=== PATIENT | male | born 1945 | race Caucasian/White ===

== ENCOUNTER → 2017-01-27 | Outpatient (CLI) | payer MEDICARE ==
[~2017-01-27] MED LIST: /IPRAINH IN; /MOXI40TA OR; ACYC400T OR; ASPI325T OR; CENTRUM SILVER PO; CLON1TAB OR; ISOSORBIDE DINITRATE PO; LIPI80TA OR; METOPROLOL TARTRATE PO; MOTR200T4 PO; NIAC500T OR; NITR0.2D TD; OMEP20TA7 OR; PREDPOW10 PO; TERAZOSIN PO
[2017-01-27 08:12] LABS: BLOOD UREA NITROGEN 24 MG/DL (7-18); CREATININE FOR GFR 1.15 MG/DL (0.70-1.30); GLOMERULAR FILTRATION RATE > 60.0 (>49)
== END ==
LOC: M LAB 07:26
PROVIDERS: ATTEND Surgery Vascular Surgery
DX: Z48.812 Encounter for surgical aftercare following surgery on the circulatory system (principal)

== ENCOUNTER → 2017-02-02 | Outpatient (CLI) | payer MEDICARE ==
[2017-02-02 10:37] LABS: CREATININE FOR GFR 1.36 MG/DL (0.70-1.30); GLOMERULAR FILTRATION RATE 55.3 (>49)
== END ==
LOC: M LAB 09:26
PROVIDERS: ATTEND Surgery Vascular Surgery
DX: Z48.812 Encounter for surgical aftercare following surgery on the circulatory system (principal)

== ENCOUNTER → 2017-02-03 | Outpatient (CLI) | payer MEDICARE ==
[2017-02-03 10:41] LABS: BASO % 0.3 % (0.0-1.0); EOS # 0.1 K/mm3 (0.0-0.50); EOS % 1.4 % (0.0-3.0); LARGE UNSTAINED CELL # 0.1 K/mm3 (0.0-0.4); LARGE UNSTAINED CELL % 1.6 % (0.0-4.0); LYMPH # 1.3 K/mm3 (1.5-4.5); LYMPH % 20.8 % (24.0-44.0); MEAN CORPUSCULAR HEMOGLOBIN 31.3 pg (27.0-33.0); MEAN CORPUSCULAR HGB CONC 32.9 g/dl (32.0-36.5); MEAN CORPUSCULAR VOLUME 95.4 fl (80.0-96.0); MONO # 0.5 K/mm3 (0.0-0.8); MONO % 7.9 % (0.0-5.0); PLATELET COUNT, AUTOMATED 192 k/mm3 (150-450); RED CELL DISTRIBUTION WIDTH 14.9 % (11.5-14.5); WHITE BLOOD COUNT 5.9 K/mm3 (4.0-10.0)
[2017-02-03 10:47] LABS: INR 1.14
[2017-02-03 10:55] LABS: ANION GAP 7 MEQ/L (8-16); BLOOD UREA NITROGEN 18 MG/DL (7-18); CALCIUM LEVEL 9.6 MG/DL (8.8-10.2); CARBON DIOXIDE LEVEL 26 MEQ/L (21-32); CHLORIDE LEVEL 106 MEQ/L (98-107); CREATININE FOR GFR 1.12 MG/DL (0.70-1.30); GLOMERULAR FILTRATION RATE > 60.0 (>49); GLUCOSE, FASTING 123 MG/DL (80-110); POTASSIUM SERUM 4.3 MEQ/L (3.5-5.1); SODIUM LEVEL 139 MEQ/L (136-145)
== END ==
LOC: M LAB 10:12
PROVIDERS: ATTEND Surgery Vascular Surgery
DX: Z01.818 Encounter for other preprocedural examination (principal); D69.8 Other specified hemorrhagic conditions

== ENCOUNTER → 2017-11-02 | Outpatient (CLI) | payer MEDICARE | LOC: M RAD 12:25 | DX: I70.211 Atherosclerosis of native arteries of extremities with intermittent claudication, right leg (principal); I70.202 Unspecified atherosclerosis of native arteries of extremities, left leg; Z95.828 Presence of other vascular implants and grafts | CPT/HCPCS: 93923 ==

== ENCOUNTER → 2017-11-24 | Outpatient (CLI) | payer MEDICARE ==
[~2017-11-24] MED LIST changes: -/IPRAINH IN; -/MOXI40TA OR; -ACYC400T OR; -ASPI325T OR; -CENTRUM SILVER PO; -CLON1TAB OR; +HEPARIN 1,000 UNITS/ML 10ML VIAL (FOR RADIOLOGY& DIALYSIS ONLY) As Ordered; -ISOSORBIDE DINITRATE PO; +ISOVUE-300 61% 50ML VIAL (Q9967) As Ordered; +LIDOCAINE 2% MDV 20 ML VIAL As Ordered; -LIPI80TA OR; -METOPROLOL TARTRATE PO; +MIDAZOLAM INJ 2 MG/2 ML VIAL (J2250) As Ordered; -MOTR200T4 PO; -NIAC500T OR; -NITR0.2D TD; -OMEP20TA7 OR; -PREDPOW10 PO; -TERAZOSIN PO; +fentaNYL 100 MCG/2 ML INJECTION (J3010) As Ordered
== END | disposition home or self-care (01) ==
LOC: M IRPRO 10:28
DX: I70.213 Atherosclerosis of native arteries of extremities with intermittent claudication, bilateral legs (principal); I70.0 Atherosclerosis of aorta; I11.0 Hypertensive heart disease with heart failure; I50.9 Heart failure, unspecified; I25.2 Old myocardial infarction; I25.10 Atherosclerotic heart disease of native coronary artery without angina pectoris; F43.10 Post-traumatic stress disorder, unspecified; E78.00 Pure hypercholesterolemia, unspecified
CPT/HCPCS: 37221

== ENCOUNTER → 2018-01-15 | Outpatient (CLI) | payer MEDICARE | LOC: M RAD 12:30 | DX: I73.9 Peripheral vascular disease, unspecified (principal) | CPT/HCPCS: 93923 ==

== ENCOUNTER 2018-01-25 21:26 | Emergency (ER) | payer MEDICARE ==
[2018-01-25 22:46] LABS: BASO % 0.6 % (0.0-1.0); EOS # 0.2 10^3/uL (0.0-0.50); EOS % 2.7 % (0.0-3.0); HEMOGLOBIN 11.8 g/dl (13.5-17.5); IMMATURE GRANULOCYTE % 0.3 % (0-3.0); LYMPH # 1.6 10^3/uL (1.5-4.5); LYMPH % 22.6 % (24.0-44.0); MEAN CORPUSCULAR HEMOGLOBIN 31.2 pg (27.0-33.0); MEAN CORPUSCULAR HGB CONC 31.9 g/dl (32.0-36.5); MEAN CORPUSCULAR VOLUME 97.9 fl (80.0-96.0); MONO % 14.3 % (0.0-5.0); NEUTROPHILS # 4.2 10^3/uL (1.8-7.7); NEUTROPHILS % 59.5 % (36.0-66.0); PLATELET COUNT, AUTOMATED 207 10^3/uL (150-450); RED BLOOD COUNT 3.78 10^6/uL (4.30-6.10); RED CELL DISTRIBUTION WIDTH 14.7 % (11.5-14.5); WHITE BLOOD COUNT 7.1 10^3/uL (4.0-10.0)
[2018-01-25] MEDS: methylPREDNISolone INJ 125 MG/2 ML VIAL (J2930) IV (23:00)
[2018-01-25 23:08] LABS: LACTIC ACID SEPSIS PROTOCOL 1.5 MMOL/L (0.4-2.0)
[2018-01-25] MEDS: IPRATROPIUM 0.5MG/ALBUTEROL 2.5MG INH SOL UD 3ML (DUONEB)(J7620) NEB (23:09)
[2018-01-25] MEDS ORDERED: ISOVUE-370 76% 100ML VIAL (Q9967) As Ordered (23:10)
[2018-01-25 23:12] LABS: ALBUMIN 4.2 GM/DL (3.2-5.2); ALBUMIN/GLOBULIN RATIO 1.08 (1.00-1.93); ALKALINE PHOSPHATASE 63 U/L (45-117); ALT/SGPT 34 U/L (12-78); ANION GAP 7 MEQ/L (8-16); AST/SGOT 16 U/L (7-37); BILIRUBIN,DIRECT 0.2 MG/DL (0.0-0.2); BILIRUBIN,TOTAL 0.7 MG/DL (0.2-1.0); BLOOD UREA NITROGEN 20 MG/DL (7-18); CARBON DIOXIDE LEVEL 29 MEQ/L (21-32); CHLORIDE LEVEL 105 MEQ/L (98-107); CREATININE FOR GFR 1.26 MG/DL (0.70-1.30); GLOMERULAR FILTRATION RATE > 60.0 (>42); GLUCOSE, FASTING 104 MG/DL (70-100); NT-PRO BNP 1705 PG/ML (<125); POTASSIUM SERUM 4.6 MEQ/L (3.5-5.1); SODIUM LEVEL 141 MEQ/L (136-145); TOTAL PROTEIN 8.1 GM/DL (6.4-8.2)
[2018-01-25] MEDS: FUROSEMIDE 40 MG/4 ML VIAL (J1940) IV (23:57)
== END 2018-01-26 02:12 | disposition home or self-care (01) ==
LOC: M ED 01-26 02:12
DX: R04.2 Hemoptysis (principal); I50.9 Heart failure, unspecified; I25.2 Old myocardial infarction; E11.9 Type 2 diabetes mellitus without complications; I11.0 Hypertensive heart disease with heart failure; E78.5 Hyperlipidemia, unspecified; F41.9 Anxiety disorder, unspecified; Z79.01 Long term (current) use of anticoagulants; Z87.09 Personal history of other diseases of the respiratory system; Z95.1 Presence of aortocoronary bypass graft; Z95.0 Presence of cardiac pacemaker; Z87.891 Personal history of nicotine dependence; Z98.890 Other specified postprocedural states
CPT/HCPCS: Q9967

== ENCOUNTER → 2018-02-19 | Outpatient (CLI) | payer MEDICARE ==
[2018-02-19 14:38] LABS: BASO % 0.3 % (0.0-1.0); EOS # 0.2 10^3/uL (0.0-0.50); EOS % 2.3 % (0.0-3.0); HEMATOCRIT 36.3 % (42.0-52.0); HEMOGLOBIN 11.9 g/dl (13.5-17.5); IMMATURE GRANULOCYTE % 0.4 % (0-3.0); LYMPH # 1.6 10^3/uL (1.5-4.5); LYMPH % 21.6 % (24.0-44.0); MEAN CORPUSCULAR HGB CONC 32.8 g/dl (32.0-36.5); MEAN CORPUSCULAR VOLUME 97.6 fl (80.0-96.0); MONO % 13.5 % (0.0-5.0); NEUTROPHILS # 4.6 10^3/uL (1.8-7.7); NEUTROPHILS % 61.9 % (36.0-66.0); PLATELET COUNT, AUTOMATED 161 10^3/uL (150-450); RED BLOOD COUNT 3.72 10^6/uL (4.30-6.10); RED CELL DISTRIBUTION WIDTH 14.5 % (11.5-14.5); WHITE BLOOD COUNT 7.4 10^3/uL (4.0-10.0)
[2018-02-19 15:07] LABS: ANION GAP 6 MEQ/L (8-16); BLOOD UREA NITROGEN 14 MG/DL (7-18); CALCIUM LEVEL 9.5 MG/DL (8.8-10.2); CARBON DIOXIDE LEVEL 26 MEQ/L (21-32); CHLORIDE LEVEL 108 MEQ/L (98-107); CREATININE FOR GFR 1.23 MG/DL (0.70-1.30); GLOMERULAR FILTRATION RATE > 60.0 (>42); GLUCOSE, FASTING 114 MG/DL (70-100); POTASSIUM SERUM 4.5 MEQ/L (3.5-5.1); SODIUM LEVEL 140 MEQ/L (136-145)
== END ==
LOC: M LAB 14:08
DX: I70.0 Atherosclerosis of aorta (principal); Z79.899 Other long term (current) drug therapy
CPT/HCPCS: 80048

== ENCOUNTER → 2018-02-28 | Outpatient (CLI) | payer MEDICARE ==
[~2018-02-28] MED LIST changes: -LIDOCAINE 2% MDV 20 ML VIAL As Ordered
== END | disposition home or self-care (01) ==
LOC: M IRPRO 06:34
DX: I70.213 Atherosclerosis of native arteries of extremities with intermittent claudication, bilateral legs (principal); I25.10 Atherosclerotic heart disease of native coronary artery without angina pectoris; E78.00 Pure hypercholesterolemia, unspecified; E78.5 Hyperlipidemia, unspecified; I25.2 Old myocardial infarction; I11.0 Hypertensive heart disease with heart failure; I50.9 Heart failure, unspecified; F43.10 Post-traumatic stress disorder, unspecified; I70.0 Atherosclerosis of aorta; M79.605 Pain in left leg
CPT/HCPCS: 36246

== ENCOUNTER → 2018-10-09 | Outpatient (CLI) | payer MEDICARE ==
[~2018-10-09] MED LIST changes: +/IPRAINH IN; +/MOXI40TA OR; +ACET500T15 PO; +ACYC400T OR; +ALL10TAB28 PO; +ASPI325T OR; +CARV12.5 PO; +CENTRUM SILVER PO; +CLON1TAB PO; +ECOT81TA5 PO; -HEPARIN 1,000 UNITS/ML 10ML VIAL (FOR RADIOLOGY& DIALYSIS ONLY) As Ordered; +ISOR1TAB2 PO; +ISOS30TAB PO; +ISOSORBIDE DINITRATE PO; -ISOVUE-300 61% 50ML VIAL (Q9967) As Ordered; +LIPI80TA OR; +METF500T13 PO; +METOPROLOL TARTRATE PO; -MIDAZOLAM INJ 2 MG/2 ML VIAL (J2250) As Ordered; +MOTR200T4 PO; +MULT1CHW39 PO; +NIAC500T OR; +NITR0.2D TD; +NITR0.4S14 SL; +OMEP20TA7 PO; +PLAV1TAB2 PO; +PREDPOW10 PO; +SPIR-10 PO; +TERAZOSIN PO; +VALS1TAB49 PO; +VITMTA PO; -fentaNYL 100 MCG/2 ML INJECTION (J3010) As Ordered
--- NOTE | 2018-10-09 12:08 | REP ---
Clinical: Ventricular fibrillation. Technique: PA and lateral. Comparison: 01/25/2018. Findings: Stable cardiomegaly noted along with prior sternotomy and CABG. Pacemaker in satisfactory stable position. The lung wal[place] are relatively clear and without obvious acute consolidation, effusion, or pneumothorax. Skeletal structures intact. Impression: Cardiomegaly and chronic stable changes. No obvious acute cardiopulmonary process. Electronically Signed by Mitch Chao MD 10/09/2018 11:59 A
[2018-10-09 13:21] LABS: ALBUMIN 4.1 GM/DL (3.2-5.2); BILIRUBIN,DIRECT 0.2 MG/DL (0.0-0.2); BILIRUBIN,TOTAL 0.6 MG/DL (0.2-1.0); MAGNESIUM LEVEL 1.7 MG/DL (1.8-2.4); THYROID STIMULATING HORMONE 0.802 uIU/ML (0.358-3.740); TOTAL PROTEIN 7.8 GM/DL (6.4-8.2)
== END ==
LOC: M LAB 11:27
PROVIDERS: ATTEND Physician Assistant
DX: I51.7 Cardiomegaly (principal); I49.01 Ventricular fibrillation; Z95.0 Presence of cardiac pacemaker

== ENCOUNTER → 2018-11-06 | Outpatient (CLI) | payer MEDICARE ==
--- NOTE | 2018-11-06 14:54 | REP ---
CAROTID ULTRASOUND: Real-time ultrasound evaluation and duplex Doppler interrogation of the extracranial carotid vasculature is performed. There is mild to moderate plaquing and narrowing in both carotid bulbs right greater than left, extending into the internal and external carotid arteries. Luminal narrowing is less than 50%. There is no evidence of hemodynamically significant stenosis of either internal carotid artery. Normal flow velocities are seen. The vertebral arteries demonstrate normal direction of flow. RIGHT LEFT Peak systolic velocity ICA 91.3 cm/s 107 cm/s End diastolic velocity ICA 23.7 cm/s 39.8 cm/s Peak systolic velocity CCA 86.4 cm/s 121 cm/s Peak systolic velocity ECA 101 cm/s 91.1 cm/s ICA/CCA ratio 1.06 0.88 IMPRESSION: Bilateral luminal narrowing of the internal carotid arteries less than 50%. No evidence of hemodynamically significant stenosis. Electronically Signed by Robin Conley MD 11/06/2018 02:45 P
== END ==
LOC: M RAD 13:03
PROVIDERS: ATTEND Physician Assistant
DX: I65.23 Occlusion and stenosis of bilateral carotid arteries (principal)

== ENCOUNTER → 2018-12-21 | Outpatient (CLI) | payer MEDICARE ==
[~2018-12-21] MED LIST changes: -/IPRAINH IN; -/MOXI40TA OR; +ATRO0.063 IN; +AVEL1TAB2 OR; -MULT1CHW39 PO; +MULT200T7 PO
--- NOTE | 2018-12-21 16:30 | REP ---
Bilateral lower extremity arterial Doppler ultrasound: History: Atherosclerosis. Bypass graft. Findings: Ankle brachial indices are low, 0.69 on the right and 0.62 on the left. The distal aorta and common iliac arteries could not be visualized due to body habitus and bowel gas. An external iliac stent is noted on the right. This is patent with a peak systolic flow velocity 98.2 cm/sec and monophasic wave form. There is a left external iliac to common femoral artery bypass graft which appears to be patent although somewhat low velocity. External iliac artery velocity on the left is 156 cm/sec. Bypass graft velocities taper from 124 cm/S proximally to 35 cm/S distally. The proximal superficial femoral artery on the left is occluded. The proximal superficial femoral artery on the right is occluded. Collaterals are seen. Monophasic waveforms are noted bilaterally in the lower extremities. Right lower extremity arterial Doppler velocity chart: CF A 109 cm/S Profunda 142 Proximal SFA occluded Mid SFA occluded Distal SFA 29 Popliteal 28 Proximal AT A 6.2 Tibioperoneal trunk 22.9 Proximal LAB DIRECTOR 20.5 Distal LAB DIRECTOR 24.0 Distal AT A 25.7 Left lower extremity arterial Doppler velocity chart: CF A 31.9 cm/S Profunda 63.7 Proximal SFA 18.3 Mid SFA occluded Distal SFA 24.7 Popliteal 16.7 Proximal AT A 35.8 Tibioperoneal trunk 19.1 Proximal LAB DIRECTOR 18.9 Distal LAB DIRECTOR 16.1 Distal AT A 17.7 Electronically Signed by Desmond Meneses MD 12/21/2018 04:21 P
== END ==
LOC: M RAD 13:03
PROVIDERS: ATTEND Surgery Vascular Surgery
DX: I70.213 Atherosclerosis of native arteries of extremities with intermittent claudication, bilateral legs (principal); Z95.1 Presence of aortocoronary bypass graft

== ENCOUNTER 2019-01-10 09:22 | Day surgery (SDC) | payer MEDICARE ==
[~2019-01-10] VITALS: Ht 172.7 cm; Wt 93.4 kg
[~2019-01-10 09:22] MED LIST changes: +CLON1TAB17 PO; +ENTR1TAB PO; +OMEP40CA2 PO; +PACE200T PO
[2019-01-10] MEDS ORDERED: NS 1,000 ML IV SCH (09:30)
[2019-01-10] MEDS ORDERED: LIDOCAINE 2% INJ 100 MG/5 ML SDV (FOR ANES.) As Ordered ONE (10:04)
[2019-01-10] MEDS ORDERED: PROPOFOL 200 MG/20 ML VIAL As Ordered ONE ×2 (10:04→10:31)
--- NOTE | 2019-01-10 10:16 | ROOR ---
Patient Name: Roshan Archer Procedure Date: 01/10/2019 10:05 AM Date of : 1945 Age: 73 Room: [facility] Gender: Male Note Status: Finalized Procedure: Upper GI endoscopy Indications: Generalized abdominal pain Providers: Luke Chapman Jr, MD Referring MD: [facility] Erin MAO [facility], Admin. Requesting Provider: Medicines: Propofol per Anesthesia Complications: No immediate complications. Procedure: Pre-Anesthesia Assessment: - Prior to the procedure, a History and Physical was performed, and patient medications and allergies were reviewed. The patient is competent. The risks and benefits of the procedure and the sedation options and risks were discussed with the patient. All questions were answered and informed consent was obtained. Patient identification and proposed procedure were verified by the physician and the nurse in the pre-procedure area and in the procedure room. Mental Status Examination: alert and oriented. Airway Examination: normal oropharyngeal airway and neck mobility. Respiratory Examination: clear to auscultation. CV Examination: normal. ASA Grade Assessment: II - A patient with mild systemic disease. After reviewing the risks and benefits, the patient was deemed in satisfactory condition to undergo the procedure. The anesthesia plan was to use moderate sedation / analgesia (conscious sedation). Immediately prior to administration of medications, the patient was re-assessed for adequacy to receive sedatives. The heart rate, respiratory rate, oxygen saturations, blood pressure, adequacy of pulmonary ventilation, and response to care were monitored throughout the procedure. The physical status of the patient was re-assessed after the procedure. The Endoscope was introduced through the mouth, and advanced to the second part of duodenum. The upper GI endoscopy was accomplished without difficulty. The patient tolerated the procedure well. Findings: The upper third of the esophagus, middle third of the esophagus and lower third of the esophagus were normal. Localized mild inflammation characterized by erythema and friability was found on the greater curvature of the stomach and in the prepyloric region of the stomach. Biopsies were taken with a cold forceps for histology. The cardia, gastric fundus, gastric antrum and pylorus were normal. Patchy mild inflammation characterized by congestion (edema), erythema and friability was found in the duodenal bulb. The first portion of the duodenum and second portion of the duodenum were normal. Impression: - Normal upper third of esophagus, middle third of esophagus and lower third of esophagus. - Gastritis. Biopsied. - Normal cardia, gastric fundus, antrum and pylorus. - Duodenitis. - Normal first portion of the duodenum and second portion of the duodenum. Recommendation: - Discharge patient to home (ambulatory). - Return to my office in 2 weeks. Luek Chapman MD Luke Chapman Jr, MD 01/10/2019 10:16:22 AM Electronically signed by Luke Chapman Jr, MD Number of Addenda: 0 Note Initiated On: 01/10/2019 10:05 AM Estimated Blood Loss: Estimated blood loss: none.
--- NOTE | 2019-01-10 10:35 | ROOR ---
Patient Name: Roshan Archer Procedure Date: 01/10/2019 10:06 AM Date of : 1945 Age: 73 Room: [facility] Gender: Male Note Status: Finalized Procedure: Colonoscopy Indications: Constipation Providers: Luke Chapman Jr, MD Referring MD: [facility] Erin MAO [facility], Admin. Requesting Provider: Medicines: Propofol per Anesthesia Complications: No immediate complications. Procedure: Pre-Anesthesia Assessment: - Prior to the procedure, a History and Physical was performed, and patient medications and allergies were reviewed. The patient is competent. The risks and benefits of the procedure and the sedation options and risks were discussed with the patient. All questions were answered and informed consent was obtained. Patient identification and proposed procedure were verified by the physician and the nurse in the pre-procedure area and in the procedure room. Mental Status Examination: alert and oriented. Airway Examination: normal oropharyngeal airway and neck mobility. Respiratory Examination: clear to auscultation. CV Examination: normal. ASA Grade Assessment: II - A patient with mild systemic disease. After reviewing the risks and benefits, the patient was deemed in satisfactory condition to undergo the procedure. The anesthesia plan was to use moderate sedation / analgesia (conscious sedation). Immediately prior to administration of medications, the patient was re-assessed for adequacy to receive sedatives. The heart rate, respiratory rate, oxygen saturations, blood pressure, adequacy of pulmonary ventilation, and response to care were monitored throughout the procedure. The physical status of the patient was re-assessed after the procedure. The Colonoscope was introduced through the anus and advanced to the cecum, identified by appendiceal orifice and ileocecal valve. The colonoscopy was performed without difficulty. The patient tolerated the procedure well. The quality of the bowel preparation was adequate. Findings: The sigmoid colon, descending colon, ascending colon, cecum, appendiceal orifice and ileocecal valve appeared normal. Three polyps were found in the rectum, recto-sigmoid colon and transverse colon. The polyps were small in size. These polyps were removed with a cold snare. Resection and retrieval were complete. To close a defect after polypectomy, one hemostatic clip was successfully placed. There was no bleeding at the end of the procedure. A small polyp was found in the anus. The polyp was removed with a hot snare. The polyp was removed with a cold snare. Resection was complete, and retrieval was complete. Impression: - The sigmoid colon, descending colon, ascending colon, cecum, appendiceal orifice and ileocecal valve are normal. - Three small polyps in the rectum, at the recto-sigmoid colon and in the transverse colon, removed with a cold snare. Resected and retrieved. Clip was placed. - One small polyp at the anus, removed with a hot snare and removed with a cold snare. Resected and retrieved. Recommendation: - Repeat colonoscopy in 5-10 years for surveillance based on pathology results. Luke Chapman MD Luke Chapman Jr, MD 01/10/2019 10:34:50 AM Electronically signed by Luke Chapman Jr, MD Number of Addenda: 0 Note Initiated On: 01/10/2019 10:06 AM Estimated Blood Loss: Estimated blood loss: none.
[2019-01-10 11:00] VITALS: BP 93/53
== END 2019-01-10 11:13 | disposition home or self-care (01) ==
LOC: M OPP 09:22
PROVIDERS: ATTEND Surgery
DX: D12.3 Benign neoplasm of transverse colon (principal); D12.7 Benign neoplasm of rectosigmoid junction; K62.0 Anal polyp; K62.1 Rectal polyp; K29.70 Gastritis, unspecified, without bleeding; K29.80 Duodenitis without bleeding; K59.00 Constipation, unspecified; R10.84 Generalized abdominal pain

== ENCOUNTER 2019-06-28 10:21 | Inpatient (IN) | payer MEDICARE ==
[~2019-06-28] VITALS: Ht 172.7 cm; Wt 91.3 kg
[~2019-06-28 10:21] MED LIST changes: -ALL10TAB28 PO; +ALL10TAB29 PO; -OMEP40CA2 PO; +OMEP40CA97 PO; -VALS1TAB49 PO; +VALS40TA9 PO
[2019-06-28] MEDS ORDERED: ASPIRIN 325 MG TAB PO ONE (10:45)
[2019-06-28] MEDS ORDERED: ASPIRIN 81 MG CHEW TABLET PO ONE (10:45)
[2019-06-28 11:00] LABS: BASO % 0.1 % (0.0-1.0); EOS % 0.4 % (0.0-3.0); HEMATOCRIT 35.1 % (42.0-52.0); HEMOGLOBIN 10.9 g/dl (13.5-17.5); LYMPH # 0.6 10^3/uL (1.5-5.0); MEAN CORPUSCULAR HGB CONC 31.1 g/dl (32.0-36.5); MEAN CORPUSCULAR VOLUME 102.9 fl (80.0-96.0); MONO # 0.7 10^3/uL (0.0-0.8); MONO % 7.9 % (0.0-5.0); NEUTROPHILS # 7.9 10^3/uL (1.5-8.5); NEUTROPHILS % 84.8 % (36.0-66.0); PLATELET COUNT, AUTOMATED 201 10^3/uL (150-450); RED BLOOD COUNT 3.41 10^6/uL (4.30-6.10); WHITE BLOOD COUNT 9.3 10^3/uL (4.0-10.0)
[2019-06-28] MEDS ORDERED: TORS20TA2 PO (11:06)
--- NOTE | 2019-06-28 11:15 | REP ---
Portable chest x-ray: Single view. History: Chest pain. Comparison study: October 09, 2018. Findings: Monitoring electrodes are seen. The patient is status post median sternotomy. A multi lead pacemaker is noted in the right heart via the left side. Marked cardiomegaly is observed. These findings are unchanged. Pulmonary vasculature is cephalized. There is no evidence of pleural effusion or pulmonary edema. No focal infiltrate. Impression: Cardiomegaly with pacemaker. Cephalization. No evidence of pleural effusion or pulmonary edema. Electronically Signed by Desmond Meneses MD 06/28/2019 11:06 A
[2019-06-28 11:31] LABS: ALBUMIN 3.4 GM/DL (3.2-5.2); ALT/SGPT 227 U/L (12-78); BILIRUBIN,DIRECT 0.4 MG/DL (0.0-0.2); BILIRUBIN,TOTAL 0.7 MG/DL (0.2-1.0); BLOOD UREA NITROGEN 40 MG/DL (7-18); CALCIUM LEVEL 9.6 MG/DL (8.8-10.2); CARBON DIOXIDE LEVEL 21 MEQ/L (21-32); CHLORIDE LEVEL 107 MEQ/L (98-107); CPK CREATINE PHOSPHOKINASE 38 U/L (39-308); CREATININE FOR GFR 2.04 MG/DL (0.70-1.30); GLOMERULAR FILTRATION RATE 34.3 (>42); GLUCOSE, FASTING 137 MG/DL (70-100); LIPASE 115 U/L (73-393); MB/CK RELATIVE INDEX 2.63 (< OR =4); POTASSIUM SERUM 4.7 MEQ/L (3.5-5.1); SODIUM LEVEL 136 MEQ/L (136-145); TROPONIN I < 0.02 NG/ML (< 0.10)
[2019-06-28] MEDS ORDERED: NS 1,000 ML IV ONE (12:00)
--- NOTE | 2019-06-28 13:25 | REP ---
Right upper quadrant sonography: History: Right upper quadrant pain with abdominal distension. Findings: Scanning through the right upper quadrant of the abdomen demonstrates a contracted appearing gallbladder containing a 9 mm rounded echogenic immobile structure in its fundus. No definite acoustic shadowing. Polyp versus non-shadowing calculus. The common bile duct is normal measuring 0.3 cm in greatest diameter. Increased echogenicity in the liver is seen consistent with fatty infiltration. No focal liver lesion is seen. The pancreas is obscured by abdominal gas. No right renal abnormality is noted. The right kidney measures 11.5 x 5.9 x 4.9 cm. There is a trace of fluid adjacent to the inferior edge of the liver. Impression: Small contracted appearing gallbladder containing a 9 mm rounded echogenic structure without shadowing. Polyp versus stone. Increased echogenicity in the liver consistent with fatty infiltration. Trace of free fluid. Otherwise negative. Electronically Signed by Desmond Meneses MD 06/28/2019 06:36 P
[2019-06-28 14:36] LABS: CK-MB VALUE MASS < 1.0 NG/ML (<3.6); CPK CREATINE PHOSPHOKINASE 29 U/L (39-308); MB/CK RELATIVE INDEX 3.45 (< OR =4); TROPONIN I < 0.02 NG/ML (< 0.10)
--- NOTE | 2019-06-28 16:01 | REP ---
CT abdomen and pelvis without IV or oral contrast: Renal stone protocol. History: Abdomen pain. Comparison study: July 04, 2012. CT findings: Digital preliminary mentally impaired teacher radiograph demonstrates an unremarkable bowel gas pattern, median sternotomy wires, cardiomegaly, cardiac pacemaker, and bilateral iliac arterial stents. The lung bases are essentially clear. There is a tiny sliver of fluid surrounding the liver in the upper abdomen. No focal hepatic or splenic lesion is seen. The right adrenal gland is normal. There is a low-density nodule in the left adrenal gland measuring 2.2 cm in greatest diameter. This is unchanged from the 2012 study and is consistent with a benign adrenal adenoma. No pancreatic cyst or mass is observed. There are a few punctate calcifications in the pancreas which may reflect chronic pancreatitis. The gallbladder is small and contracted. Extensive vascular calcification is observed. No hydronephrosis is seen. Bilateral iliac stents are in place from the common iliac arteries to the distal external iliac arteries. There are surgical clips and some fibrosis in the left inguinal soft tissues. There is a small amount of pericolic gutter fluid. There is some ascitic fluid in the pelvic reflections. Normal appendix is seen. Urinary bladder, seminal vesicles, and prostate are unremarkable. Impression: Mild amount of ascites. Extensive vascular calcification. Small contracted appearing gallbladder. Otherwise no acute intra-abdominal abnormality. Electronically Signed by Desmond Meneses MD 06/28/2019 06:41 P
[2019-06-28] MEDS ORDERED: CARV6.25 PO (16:02)
[2019-06-28] MEDS ORDERED: CLON1TAB8 PO (16:04)
[2019-06-28] MEDS ORDERED: MOM 30ML SUSPENSION UDC PO PRN (16:30)
[2019-06-28] MEDS ORDERED: ACETAMINOPHEN TAB 650MG DOSE (2X325MG) PO PRN (16:30)
[2019-06-28] MEDS ORDERED: MAALOX 30 ML SUSP *UDC PO PRN (16:30)
[2019-06-28] MEDS ORDERED: NITROGLYCERIN 0.4 MG SUBL TABLET SL PRN (16:45)
--- NOTE | 2019-06-28 16:53 | HPEPDOC ---
General Date of Admission Jun 28, 2019 at 10:22 Date of Service: Jun 28, 2019 Chief Complaint The patient is a 74-year-old male admitted with a reason for visit of Leon (Acute Kidney Injury). Source: Patient History of Present Illness 73 y/o M initially came to ER for c/o abdominal bloating, diffuse abdominal pain for past 1 day and multiple episodes of watery diarrhea preceding abdominal pain for 4 days that has resolved. No specific aggravating or relieving factor. Abdo aliyah pain resolved its own while he was awaiting in ER. In ER pt was found with vitals of BP 139/89, HR 60, RR 18, Temp 96.4, SpO2-98% on RA; blood work up was consistent with LEON. Pt was given 1 liter NS. Hospitalist service was consulted to admit the pt for further management. Pt was seen and examined at bedside. Pt stated that he is feeling fine and did not have any complaint. Pt asked for food. PMH- obesity, chronic systolic CHF, DM type 2, CAD s/p stents, PAD, HLD, HTN, GERD, h/o AR, Anxiety, PTSD, s/p PM and defibrillator placement. PSxH- CABG, right lower extremity bypass for PAD Allergies- statins causes " disorientation" Home meds- reviewed, please refer to permanent medical records. SH- Former smoker, denied alcohol intake, lives alone, independent for activities of daily living. FH- Father CAD, Mother DM type 2. Home Medications Scheduled Amiodarone Hcl (Pacerone) 200 Mg Tablet, 200 MG PO BID, (Reported) Aspirin (Ecotrin) 81 Mg Tab, 81 MG PO DAILY, (Reported) Carvedilol (Carvedilol) 6.25 Mg Tablet, 6.25 MG PO BID, (Reported) Clonazepam (Clonazepam) 1 Mg Tablet, 1 MG PO BID, (Reported) Clopidogrel Bisulfate (Plavix) 75 Mg Tab, 75 MG PO QHS, (Reported) Isosorbide Dinitrate (Isosorbide Dinitrate) 30 Mg Tab, 30 MG PO BID, (Reported) Metformin HCl (Metformin HCl) 500 Mg Tab, 250 MG PO BID, (Reported) Sacubitril/Valsartan (Entresto 24 mg-26 mg Tablet) 1 Each Tablet, 1 TAB PO BID, (Reported) Spironolactone (Spironolactone) 25 Mg Tab, 12.5 MG PO DAILY, (Reported) Scheduled PRN Acetaminophen (Acetaminophen) 500 Mg Tab, 500 MG PO for PAIN, (Reported) Nitroglycerin (Nitroglycerin) 0.4 Mg Sub, 0.4 MG SL Q5MP PRN for CHEST PAIN, (Reported) Torsemide (Torsemide) 20 Mg Tablet, 20 MG PO DAILY PRN for EDEMA, (Reported) Allergies Coded Allergies: Sulfa (Sulfonamide Antibiotics) (Verified Allergy, Intermediate, hives, 01/01/19) buspirone (Verified Adverse Reaction, Intermediate, nausea/vomitting, ) quetiapine (Verified Adverse Reaction, Intermediate, nausea, 01/01/19) Grnihrn-Pka-Onv Reductase Inhibitor (Verified Adverse Reaction, Mild, diarrhea, 01/01/19) A-FIB/CHADSVASC A-FIB History Current/History of A-Fib/PAF?: No Current PO Anticoag Therapy: No Review of Systems Other systems 10 points review of system was performed and it was negative except as per HPI Physical Examination General Exam: Positive: Alert, Cooperative, No Acute Distress Eye Exam: Positive: PERRLA ENT Exam: Positive: Mucous membr. moist/pink Neck Exam: Positive: Supple Chest Exam: Positive: Clear to auscultation, Normal air movement Heart Exam: Positive: Rate Normal, Normal S1, Normal S2 Abdomen Exam: Positive: Normal bowel sounds, Soft Extremity Exam: Positive: Other (NO pitting edema ) Neuro Exam: Positive: Normal Speech, Strength at 5/5 X4 ext Psych Exam: Positive: Mental status NL, Mood NL Vital Signs Vital Signs Date Time Temp Pulse Resp B/P (MAP) Pulse Ox O2 Delivery O2 Flow Rate FiO2 06/28/19 15:00 60 139/89 (106) 98 Room Air 06/28/19 10:22 96.4 18 Laboratory Data Labs 24H Laboratory Tests 2 06/28/19 10:29: Immature Granulocyte % (Auto) 0.8, Neutrophils (%) (Auto) 84.8H, Lymphocytes (%) (Auto) 6.0L, Monocytes (%) (Auto) 7.9H, Eosinophils (%) (Auto) 0.4, Basophils (%) (Auto) 0.1, Neutrophils # (Auto) 7.9, Lymphocytes # (Auto) 0.6L, Monocytes # (Auto) 0.7, Eosinophils # (Auto) 0.0, Basophils # (Auto) 0.0, Nucleated Red Blood Cells % (auto) 0.3H, Anion Gap 8, Glomerular Filtration Rate 34.3L, Calcium Level 9.6, Total Bilirubin 0.7, Direct Bilirubin 0.4H, Aspartate Amino Transf (AST/SGOT) 118H, Alanine Aminotransferase (ALT/SGPT) 227H, Alkaline Phosphatase 91, Total Creatine Kinase 38L, Creatine Kinase MB 1.0, Creatine K inase MB Relative Index 2.63, Troponin I < 0.02, Total Protein 7.0, Albumin 3.4, Albumin/Globulin Ratio 0.94L, Lipase 115 06/28/19 14:27: Total Creatine Kinase 29L, Creatine Kinase MB < 1.0, Creatine Kinase MB Relative Index 3.45, Troponin I < 0.02 CBC/BMP Laboratory Tests 06/28/19 10:29 Assessment/Plan 74 y/o M came c/o mild diffuse abdominal pain and bloating that resolved its own, pt also had recent episode of suspected episode of viral enteritis that also has resolved. Work up was consistent with LEON. Labs and imaging studies reviewed WBC 9.3 H/H 10//35.1 Plats 201 BUN/Cr 40/2.04 was 14/1.23 CT abdomen and US RUQ- no acute pathology Troponin x 2 negative AST/ALT 118/227 Impression- LEON most probably prerenal Plan 1. LEON IV fluid will f/u UA and repeat labs will monitor for volume overload closely in view of h/o systolic CHF 2. chronic systolic CHF stable home meds except diuretics 3. DM type 2 will hold metformin diabetic diet ISS 4. GERD home meds 5. Anxiety Home meds 6. CAD home meds 7. Obesity supportive care 8. Ascites shown on CT and mild transaminitis will f/u repeat labs and o/p GI referral. 9 HLD home meds 10. PAD home meds DVT ppx- SCD, pt is walking around, no chemical ppx indicated Plan / VTE VTE Prophylaxis Ordered?: No YOHANNES JONAS MD Jun 28, 2019 16:53
--- NOTE | 2019-06-28 19:08 | ECGEPIP ---
[facility] - ED Test Date: 2019-06-28 Pat Name: KULWANT MCLAUGHLIN Department: Room: - Gender: Male Ibm Bpm Developer: : 1945 Requested By: Lesley Cox Order Number: [id number] Reading MD: Karen Bedolla Measurements Intervals [place] Rate: 60 P: -81 MS: 140 QRS: 242 QRSD: 191 T: 110 QT: 520 QTc: 520 Interpretive Statements ELECTRONIC ATRIAL PACEMAKER ELECTRONIC VENTRICULAR PACEMAKER ABNORMAL RHYTHM ECG Electronically Signed on 06-28-2019 19:08:46 EST by Karen Bedolla
--- NOTE | 2019-06-28 19:12 | ECGEPIP ---
[facility] - ED Test Date: 2019-06-28 Pat Name: KULWANT MCLAUGHLIN Department: Room: [place] [id number] Gender: Male Press Leader: : 1945 Requested By: Lesley Cox Order Number: [id number] Reading MD: Karen Bedolla Measurements Intervals [place] Rate: 60 P: -84 UT: 146 QRS: 248 QRSD: 184 T: 113 QT: 518 QTc: 518 Interpretive Statements ELECTRONIC ATRIAL PACEMAKER ELECTRONIC VENTRICULAR PACEMAKER ABNORMAL RHYTHM ECG Electronically Signed on 06-28-2019 19:11:49 EST by Karen Bedolla
[2019-06-28 19:45] VITALS: BP 114/62
[2019-06-28] MEDS ORDERED: DEXTROSE 50% 50 ML SYRINGE IV PRN (21:30)
[2019-06-28] MEDS ORDERED: GLUCAGON FOR INJ 1 MG VIAL (J1610) SC PRN (21:30)
[2019-06-28] MEDS ORDERED: GLUCOSE 4 GM CHEW TABLET PO PRN (21:30)
[2019-06-28] MEDS: clonazePAM 1 MG TAB PO SCH (22:18)
[2019-06-28] MEDS: AMIODARONE 200 MG TAB (PACERONE) PO SCH (22:36)
[2019-06-28] MEDS: ISOSORBIDE DIN. (ISORDIL) 30 MG TAB PO SCH (22:37)
[2019-06-28] MEDS: CLOPIDOGREL 75 MG TAB PO SCH (22:37)
[2019-06-28] MEDS: ENTRESTO 24-26MG TABLET (SACUBITRIL/VALSARTAN) PO SCH (22:37)
[2019-06-28] MEDS: CARVedilol 6.25 MG TAB PO SCH (22:37)
[2019-06-28] MEDS: NS 1,000 ML IV SCH (22:38)
[2019-06-29 06:00] VITALS: BP 124/58
[2019-06-29 06:44] LABS: HEMATOCRIT 34.4 % (42.0-52.0); HEMOGLOBIN 10.6 g/dl (13.5-17.5); MEAN CORPUSCULAR HEMOGLOBIN 31.6 pg (27.0-33.0); MEAN CORPUSCULAR HGB CONC 30.8 g/dl (32.0-36.5); MEAN CORPUSCULAR VOLUME 102.7 fl (80.0-96.0); PLATELET COUNT, AUTOMATED 214 10^3/uL (150-450); RED BLOOD COUNT 3.35 10^6/uL (4.30-6.10); WHITE BLOOD COUNT 8.4 10^3/uL (4.0-10.0)
[2019-06-29 07:11] LABS: ALBUMIN 3.3 GM/DL (3.2-5.2); BILIRUBIN,TOTAL 0.7 MG/DL (0.2-1.0); CALCIUM LEVEL 9.3 MG/DL (8.8-10.2); CREATININE FOR GFR 1.75 MG/DL (0.70-1.30); POTASSIUM SERUM 4.8 MEQ/L (3.5-5.1); TOTAL PROTEIN 6.6 GM/DL (6.4-8.2)
[2019-06-29] MEDS: clonazePAM 1 MG TAB PO SCH ×3 (08:32→21:59)
[2019-06-29] MEDS: HumaLOG INSULIN (NovoLOG) PER UNIT SC SCH ×4 (08:33→21:00)
[2019-06-29] MEDS: AMIODARONE 200 MG TAB (PACERONE) PO SCH ×2 (08:34→22:00)
[2019-06-29] MEDS: ASPIRIN 81 MG ENTERIC TAB PO SCH (08:34)
[2019-06-29] MEDS: CARVedilol 6.25 MG TAB PO SCH ×2 (08:35→21:00)
[2019-06-29] MEDS: ISOSORBIDE DIN. (ISORDIL) 30 MG TAB PO SCH ×2 (08:35→22:00)
[2019-06-29] MEDS: ENTRESTO 24-26MG TABLET (SACUBITRIL/VALSARTAN) PO SCH ×2 (08:35→22:00)
[2019-06-29] MEDS: NS 1,000 ML IV SCH ×3 (09:20→22:19)
[2019-06-29 14:00] VITALS: BP 118/56
--- NOTE | 2019-06-29 16:22 | IPNPDOC ---
Subjective Date Seen The patient was seen on 06/29/19. Subjective Chief Complaint/HPI abnormal renal function Events since last encounter Pt was seen and examined at bedside. Pt was resting comfortably in bed. Pt denied abdominal pain. Renal function has not improved as anticipated with ivf. will change admission status to inpatient Objective Physical Examination General Exam: Positive: Alert, Cooperative, No Acute Distress Eye Exam: Positive: PERRLA ENT Exam: Positive: Mucous membr. moist/pink Neck Exam: Positive: Supple Chest Exam: Positive: Clear to auscultation, Normal air movement Heart Exam: Positive: Rate Normal, Normal S1, Normal S2 Abdomen Exam: Positive: Normal bowel sounds, Soft Extremity Exam: Positive: Other (NO pitting edema ) Neuro Exam: Positive: Normal Speech, Strength at 5/5 X4 ext Psych Exam: Positive: Mental status NL, Mood NL Assessment /Plan Assessment 74 y/o M came c/o mild diffuse abdominal pain and bloating that resolved its own, pt also had recent episode of suspected viral enteritis that also has resolved. Work up was consistent with SANDY. Labs and imaging studies reviewed WBC 9.3 H/H 10//35.1 Plats 201 BUN/Cr 40/2.04 was 14/1.23 CT abdomen and US RUQ- no acute pathology Troponin x 2 negative AST/ALT 118/227 Impression- SANDY most probably prerenal Plan 1. SANDY improving IV fluid will f/u UA and repeat labs will monitor for volume overload closely in view of h/o systolic CHF 2. chronic systolic CHF stable home meds except diuretics 3. DM type 2 will hold metformin diabetic diet ISS 4. GERD home meds 5. Anxiety Home meds 6. CAD home meds 7. Obesity supportive care 8. Ascites shown on CT and mild transaminitis will f/u repeat labs and o/p GI referral. 9 HLD home meds 10. PAD home meds Plan/VTE VTE Prophylaxis Ordered?: Yes VS, I&O, 24H, Fishbone Vital Signs/I&O Vital Signs Date Time Temp Pulse Resp B/P (MAP) Pulse Ox O2 Delivery O2 Flow Rate FiO2 06/29/19 14:00 97.2 61 18 118/56 (76) 95 Room Air I&O- Last 24 Hours up to 6 AM 06/29/19 06:00 Intake Total 2275 ml Output Total 425 ml Balance 1850 ml Laboratory Data 24H LABS Laboratory Tests 2 06/28/19 22:49: Bedside Glucose (Misc Panel) 142H 06/29/19 03:53: Urine Color YELLOW, Urine Appearance CLEAR, Urine pH 5.0, Urine Specific [place] 1.020, Urine Protein NEGATIVE, Urine Glucose (UA) NEGATIVE, Urine Ketones NEGATIVE, Urine Blood NEGATIVE, Urine Nitrite NEGATIVE, Urine Bilirubin NEGATIVE, Urine Urobilinogen 2.0H, Urine Leukocyte Esterase NEGATIVE, Urine WBC (Auto) 0, Urine RBC (Auto) 1, Urine Hyaline Casts (Auto) 0, Urine Bacteria (Auto) NEGATIVE, Urine Squamous Epithelial Cells 0, Urine Sperm (Auto) , Urine Random Creatinine 124.0, Urine Random Sodium 70 06/29/19 06:25: Nucleated Red Blood Cells % (auto) 0.5H, Anion Gap 7L, Glomerular Filtration Rate 41.0L, Calcium Level 9.3, Total Bilirubin 0.7, Aspartate Amino Transf (AST/SGOT) 116H, Alanine Aminotransferase (ALT/SGPT) 247H, Alkaline Phosphatase 100, Total Protein 6.6, Albumin 3.3, Albumin/Globulin Ratio 1.00 06/29/19 12:06: Bedside Glucose (Misc Panel) 152H CBC/BMP Laboratory Tests 06/29/19 06:25 YOHANNES JONAS MD Jun 29, 2019 16:22
[2019-06-29 20:00] VITALS: BP 104/57
[2019-06-29] MEDS: CLOPIDOGREL 75 MG TAB PO SCH (21:00)
[2019-06-30] MEDS: IPRATROPIUM 0.5MG/ALBUTEROL 2.5MG INH SOL UD 3ML (DUONEB)(J7620) NEB SCH ×7 (04:00→23:37)
[2019-06-30 06:00] VITALS: BP 108/62
[2019-06-30 07:19] LABS: HEMOGLOBIN 10.7 g/dl (13.5-17.5); MEAN CORPUSCULAR HEMOGLOBIN 30.9 pg (27.0-33.0); MEAN CORPUSCULAR HGB CONC 30.6 g/dl (32.0-36.5); MEAN CORPUSCULAR VOLUME 101.2 fl (80.0-96.0); PLATELET COUNT, AUTOMATED 203 10^3/uL (150-450); RED BLOOD COUNT 3.46 10^6/uL (4.30-6.10); WHITE BLOOD COUNT 9.5 10^3/uL (4.0-10.0)
[2019-06-30] MEDS: HumaLOG INSULIN (NovoLOG) PER UNIT SC SCH ×4 (07:30→20:53)
[2019-06-30 07:40] LABS: CREATININE FOR GFR 1.67 MG/DL (0.70-1.30); GLOMERULAR FILTRATION RATE 43.3 (>42)
[2019-06-30] MEDS ORDERED: CALCIUM CARBONATE 500 MG CHEW U/D PO PRN (08:00)
[2019-06-30] MEDS: NS 1,000 ML IV SCH ×2 (08:30→18:30)
[2019-06-30] MEDS: clonazePAM 1 MG TAB PO SCH ×2 (09:00→20:52)
[2019-06-30] MEDS ORDERED: ONDANSETRON 4MG/2ML VIAL (J2405) IV PRN (09:45)
[2019-06-30] MEDS: ASPIRIN 81 MG ENTERIC TAB PO SCH (10:54)
[2019-06-30] MEDS: AMIODARONE 200 MG TAB (PACERONE) PO SCH ×2 (10:54→20:51)
[2019-06-30] MEDS: CARVedilol 6.25 MG TAB PO SCH ×2 (10:56→20:51)
[2019-06-30] MEDS ORDERED: GAVISCON PO PRN (12:00)
[2019-06-30] MEDS: ISOSORBIDE DIN. (ISORDIL) 30 MG TAB PO SCH ×2 (12:01→20:52)
[2019-06-30] MEDS: ENTRESTO 24-26MG TABLET (SACUBITRIL/VALSARTAN) PO SCH ×2 (12:01→20:52)
[2019-06-30 14:00] VITALS: BP 129/69
--- NOTE | 2019-06-30 16:32 | IPNPDOC ---
Subjective Date Seen The patient was seen on 06/30/19. Subjective Chief Complaint/HPI abdominal discomfort Events since last encounter Pt c/o mild non specific abdominal discomfort Objective Physical Examination General Exam: Positive: Alert, Cooperative, No Acute Distress Eye Exam: Positive: PERRLA ENT Exam: Positive: Mucous membr. moist/pink Neck Exam: Positive: Supple Chest Exam: Positive: Clear to auscultation, Normal air movement Heart Exam: Positive: Rate Normal, Normal S1, Normal S2 Abdomen Exam: Positive: Normal bowel sounds, Soft Extremity Exam: Positive: Other (NO pitting edema ) Skin Exam: Positive: Nl turgor and temperature Neuro Exam: Positive: Normal Speech, Strength at 5/5 X4 ext Psych Exam: Positive: Mental status NL, Mood NL Assessment /Plan Assessment 74 y/o M came c/o mild diffuse abdominal pain and bloating that resolved its own, pt also had recent episode of suspected viral enteritis that also has resolved. Work up was consistent with SANDY. Labs and imaging studies reviewed Impression- SANDY most probably prerenal Plan 1. SANDY improving IV fluid will f/u repeat labs will continue monitor for volume overload closely in view of h/o systolic CHF 2. chronic systolic CHF stable home meds except diuretics 3. DM type 2 will hold metformin diabetic diet ISS 4. GERD home meds 5. Anxiety Home meds 6. CAD home meds 7. Obesity supportive care 8. Ascites shown on CT and mild transaminitis will f/u repeat labs and o/p GI referral. 9 HLD home meds 10. PAD home meds 11. Non specific abdominal discomfort CT- no acute finding. will continue to monitor Home medication Gavison prn Plan/VTE VTE Prophylaxis Ordered?: Yes VS, I&O, 24H, Marysol Vital Signs/I&O Vital Signs Date Time Temp Pulse Resp B/P (MAP) Pulse Ox O2 Delivery O2 Flow Rate FiO2 06/30/19 14:00 98.8 66 18 129/69 (89) 94 Room Air I&O- Last 24 Hours up to 6 AM 06/30/19 06:00 Intake Total 3970 ml Output Total 450 ml Balance 3520 ml Laboratory Data 24H LABS Laboratory Tests 2 06/29/19 16:51: Bedside Glucose (Misc Panel) 141H 06/29/19 20:35: Bedside Glucose (Misc Panel) 139H 06/30/19 06:56: Nucleated Red Blood Cells % (auto) 0.3H, Anion Gap 7L, Glomerular Filtration Rate 43.3, Calcium Level 9.0 06/30/19 12:00: Bedside Glucose (Misc Panel) 130H CBC/BMP Laboratory Tests 06/30/19 06:56 YOHANNES JONAS MD Jun 30, 2019 16:32
[2019-06-30 20:00] VITALS: BP 115/59
[2019-06-30 20:52] VITALS: BP 115/59
[2019-06-30] MEDS: CLOPIDOGREL 75 MG TAB PO SCH (20:52)
[2019-06-30] MEDS ORDERED: HEPARIN SOD (PORCINE) 5000 UNITS/ML VIAL SQ SCH (21:00)
[2019-07-01] MEDS: IPRATROPIUM 0.5MG/ALBUTEROL 2.5MG INH SOL UD 3ML (DUONEB)(J7620) NEB SCH (04:00)
[2019-07-01] MEDS: NS 1,000 ML IV SCH (04:30)
[2019-07-01 05:51] LABS: HEMATOCRIT 24.4 % (42.0-52.0); MEAN CORPUSCULAR HEMOGLOBIN 31.5 pg (27.0-33.0); MEAN CORPUSCULAR HGB CONC 32.8 g/dl (32.0-36.5); MEAN CORPUSCULAR VOLUME 96.1 fl (80.0-96.0); PLATELET COUNT, AUTOMATED 156 10^3/uL (150-450); RED BLOOD COUNT 2.54 10^6/uL (4.30-6.10); WHITE BLOOD COUNT 16.7 10^3/uL (4.0-10.0)
[2019-07-01 07:03] LABS: BLOOD UREA NITROGEN 33 MG/DL (7-18); CALCIUM LEVEL 5.5 MG/DL (8.8-10.2); CHLORIDE LEVEL 116 MEQ/L (98-107); GLUCOSE, FASTING 76 MG/DL (70-100); POTASSIUM SERUM 4.2 MEQ/L (3.5-5.1); SODIUM LEVEL 197 MEQ/L (136-145)
[2019-07-01 07:10] LABS: CARBON DIOXIDE LEVEL 95 MEQ/L (21-32)
--- NOTE | 2019-07-01 07:13 | IPNPDOC ---
Text Note Date of Service The patient was seen on 07/01/19. NOTE Rapid response note RR was called at 533 AM because the patient didn't have a pulse. We began CPR and ventilation & he received 1 dose of epi and 1 dose of bicarb. ROSC was ac hieved at 539. The monitor showed vetricular paced spikes. A second CPR was restarted at 541 because he no longer had a pulse. During the second round he received 1 dose of amiodarone, epi and bicarb. ROSC was achieved at 545 A third round of CPR was initiated at 550 because he no longer had a pulse. He received 8 dose of epi, 1 dose of amiodarone and 3 doses of bicarb. At 614 we pronounced him . Both of his sisters were informed. CC time 45 min VS,Marysol, I+O VS, Marysol, I+O Laboratory Tests 07/01/19 05:44 Vital Signs Date Time Temp Pulse Resp B/P (MAP) Pulse Ox O2 Delivery O2 Flow Rate FiO2 06/30/19 20:52 115/59 06/30/19 20:51 60 06/30/19 20:00 98.2 17 95 Room Air I&O- Last 24 Hours up to 6 AM 07/01/19 06:00 Intake Total 640 ml Output Total 400 ml Balance 240 ml FRANCO HUMPHREY MD Jul 01, 2019 07:13
[2019-07-01] MEDS ORDERED: SODIUM BICARBONATE 8.4% INJ 50 ML SYRINGE ONE (09:57)
[2019-07-01] MEDS ORDERED: EPINEPHrine 1MG/10ML SYRINGE 1.5IN ONE (09:57)
--- NOTE | 2019-07-01 10:33 | DS.PDOC ---
Discharge Summary General Date of Admission Jun 29, 2019 at 16:18 Date of Discharge Pt at 6.14 am on 07/01/19 Discharge Summary Summary 74 y/o M with multiple comorbidities including chronic systolic CHF s/p AICD placement, initially came to ER on 06/29/19 for non specific abdominal disco mfort, episodes watery diarrhea and was admitted for SANDY. Work up including CT abdomen- did not show any acute pathology. Throughout hospital stay pt remained afebrile. Pt was started on gentle hydration in view h/o CHF. Over the course of treatment pt clinical condition and labs started to improve. Pt was found unresponsive without pulse in the morning of 07/01/19, CPR was performed by night team and pt was declared at 6.14 am on 07/01/19. Pt might have of sudden cardiac arrest in view of h/o systolic CHF AICD in place. Pt was not seen by me on 07/01/19. This summary is written for completion of documentation. Vital Signs/I&Os Vital Signs Laboratory Data Labs 24H Laboratory Tests 2 06/30/19 12:00: Bedside Glucose (Misc Panel) 130H 06/30/19 16:40: Bedside Glucose (Misc Panel) 113H 06/30/19 20:04: Bedside Glucose (Misc Panel) 113H 07/01/19 05:40: Bedside Glucose (Misc Panel) 101 07/01/19 05:44: Nucleated Red Blood Cells % (auto) 0.8H, Anion Gap , Glomerular Filtration Rate 53.0, Calcium Level 5.5#*L CBC/BMP Laboratory Tests 07/01/19 05:44 FSBS Laboratory Tests Test 06/30/19 12:00 06/30/19 16:40 06/30/19 20:04 07/01/19 05:40 Range/Units Bedside Glucose (Misc Panel) 130 113 113 101 83-110 MG/DL Discharge Medications Scheduled Amiodarone Hcl (Pacerone) 200 Mg Tablet, 200 MG PO BID, (Reported) Aspirin (Ecotrin) 81 Mg Tab, 81 MG PO DAILY, (Reported) Carvedilol (Carvedilol) 6.25 Mg Tablet, 6.25 MG PO BID, (Reported) Clonazepam (Clonazepam) 1 Mg Tablet, 1 MG PO BID, (Reported) Clopidogrel Bisulfate (Plavix) 75 Mg Tab, 75 MG PO QHS, (Reported) Isosorbide Dinitrate (Isosorbide Dinitrate) 30 Mg Tab, 30 MG PO BID, (Reported) Metformin HCl (Metformin HCl) 500 Mg Tab, 250 MG PO BID, (Reported) Sacubitril/Valsartan (Entresto 24 mg-26 mg Tablet) 1 Each Tablet, 1 TAB PO BID, (Reported) Spironolactone (Spironolactone) 25 Mg Tab, 12.5 MG PO DAILY, (Reported) Scheduled PRN Acetaminophen (Acetaminophen) 500 Mg Tab, 500 MG PO for PAIN, (Reported) Nitroglycerin (Nitroglycerin) 0.4 Mg Sub, 0.4 MG SL Q5MP PRN for CHEST PAIN, (Reported) Torsemide (Torsemide) 20 Mg Tablet, 20 MG PO DAILY PRN for EDEMA, (Reported) Allergies Coded Allergies: Sulfa (Sulfonamide Antibiotics) (Verified Allergy, Intermediate, hives, 01/01/19) buspirone (Verified Adverse Reaction, Intermediate, nausea/vomitting, 01/01/19) quetiapine (Verified Adverse Reaction, Intermediate, nausea, 01/01/19) [id number] Reductase Inhibitor (Verified Adverse Reaction, Mild, diarrhea, 01/01/19) YOHANNES JONAS MD Jul 01, 2019 10:33
== END 2019-07-01 06:14 | disposition expired | DRG 683 ==
LOC: M ED 10:21 → M ED INP 10:22 → M MS4PR 18:53 → OBSVTOIN 06-29 16:18 → M ICU 07-01 05:50
PROVIDERS: ADMIT Internal Medicine; ATTEND Internal Medicine
DX: N17.9 Acute kidney failure, unspecified (principal); I50.22 Chronic systolic (congestive) heart failure; R18.8 Other ascites; I25.10 Atherosclerotic heart disease of native coronary artery without angina pectoris; E11.51 Type 2 diabetes mellitus with diabetic peripheral angiopathy without gangrene; I11.0 Hypertensive heart disease with heart failure; R74.0 Nonspecific elevation of levels of transaminase and lactic acid dehydrogenase [LDH]; I46.9 Cardiac arrest, cause unspecified; Z79.899 Other long term (current) drug therapy; Z79.82 Long term (current) use of aspirin; Z88.8 Allergy status to other drugs, medicaments and biological substances; Z88.2 Allergy status to sulfonamides; Z95.2 Presence of prosthetic heart valve; Z87.891 Personal history of nicotine dependence; E66.9 Obesity, unspecified; I25.2 Old myocardial infarction; F41.9 Anxiety disorder, unspecified; K21.9 Gastro-esophageal reflux disease without esophagitis; Z95.1 Presence of aortocoronary bypass graft